=== PATIENT | female | born 1950 | race African-American/Black ===

== ENCOUNTER 2016-09-29 21:28 | Emergency (ER) | payer MEDICARE ==
[2016-09-29] MEDS ORDERED: Acetaminophen 325 MG TAB ONE (22:03)
--- NOTE | 2016-09-29 23:16 | ERRECORD ---
[facility] EMERGENCY RECORD HPI FEVER (22:06 LHOD) CHIEF COMPLAINT: Patient presents for evaluation of fever, Measured maximum temperature 101 to 101.9 degrees. HISTORIAN: History provided by patient. TIME COURSE: PT REPORTS TUESDAY SHE HAD ONSET OF LEFT LOWER TOOTHACHE. SHE WAS SEEN BY DENTIST TUESDAY, AND STARTED ON CLEOCIN ON TUESDAY. YESTERDAY SHE ONSET OF FEVER / CHILLS. REPORTS HAS HAD 3 DOSES OF CLEOCIN AND SWELLING AROUND LEFT LOWER TOOTH HAS DECREASED. ASSOCIATED WITH: No associated abdominal pain, Associated with chills, Associated with cough, intermittent, No associated diarrhea, No associated headache, Associated with myalgias, No associated rash, No associated sore throat, No associated inability to tolerate oral intake, No associated vomiting, NASAL CONGESTION. ROS (22:10 LHOD) CONSTITUTIONAL: Historian reports chills, reports fever. ENT: Historian reports rhinorrhea, denies sore throat. CARDIOVASCULAR: Historian denies chest pain, denies edema. RESPIRATORY: Historian denies cough, denies shortness of breath. GI: Historian denies abdominal pain, denies diarrhea, denies nausea, denies vomiting. GENITOURINARY FEMALE: Historian denies dysuria. MUSCULOSKELETAL: Historian reports myalgias. SKIN: Historian denies rash. NEUROLOGIC: Historian denies headache. HEMO/LYMPHATIC: Historian denies easy bruising. NOTES: All systems reviewed, negative except as described above. PAST MEDICAL HISTORY MEDICAL HISTORY: Flu vaccine up to date, Date of immunization: 06/05/16, Tetanus not up to date, Pneumococcal vaccine up to date, Date of immunization: 2013, Past medical history includes history of hyperlipidemia, high cholesterol, Past medical history includes history of hypertension, which has been treated, Patient is compliant, Flu vaccine not up to date, Tetanus immunization up to date, Pneumococcal vaccine not up to date, Past medical history includes history of hyperlipidemia, high cholesterol, Past medical history includes history of hypertension, which has been treated, Past medical history includes history of hyperlipidemia, high cholesterol, Past medical history includes history of hypertension, which has been treated, Patient is compliant.09-23-15. (22:39 MCRS) FEMALE SURGICAL HISTORY: Patient's surgical history is not relevant to the management of the case, Surgical history of appendectomy, Surgical history of section, Surgical history of hysterectomy, Surgical history of tonsillectomy, BACK,, Surgical history of appendectomy, Surgical history of section, Notes: &a-1R&a+25V*p+0X*f3361E*c202B*c15G*c2P*p-0X&a-25V&a+1R Name: Lexie Dutton : 1950 F65 MedRec: [id number] AcctNum: [id number] Prepared: TueSep 29, 2016 23:22 by Interface Page 1 of 4 pMD [facility] EMERGENCY RECORD X 1, Surgical history of hysterectomy, Surgical history of tonsillectomy.09-23-15.verified 09-29-16. (22:39 MCRS) PSYCHIATRIC HISTORY: Notes: NONE, Notes: DENIES. verified 09-29-16. (22:39 MCRS) SOCIAL HISTORY: Patient denies alcohol use, Patient denies drug use, Patient currently uses tobacco, smokes cigarettes, daily, Patient has smoked for 30 years, Patient smokes 1/2 packs per day, Patient denies alcohol use, Patient denies drug use, Patient currently uses tobacco, smokes cigarettes, daily, Patient has smoked for 30 years, Patient smokes 1 pack per day, Lives at home, with family, Patient denies alcohol use, Patient denies drug use, Patient currently uses tobacco, smokes cigarettes, daily, Patient smokes 1 pack per day. (22:39 MCRS) NOTES: Nursing records reviewed, HTN, RECENT DENTAL INFECTION FOR WHICH SHE IS TAKING CLEOCIN. (22:14 LHOD) KNOWN ALLERGIES ALLERGIES: (Unconfirmed) FOOD ALLERGIES: (Unconfirmed) LATEX ALLERGY? (Unconfirmed) morphine: Reaction: Hives, Severity: Mild, Source: Patient NKDA (Unconfirmed) Stadol CURRENT MEDICATIONS Bystolic: TABLET : Strength - 5 mg : ORAL Patient Dose: 1 tab(s) Oral once a day. (21:43 MCRS) Norvasc: TABLET : Strength - 5 mg : ORAL Patient Dose: 5 mg Oral once a day. (21:44 MCRS) [place]: TABLET : Strength - 5 mg-325 mg : ORAL Patient Dose: 1 tab(s) Oral every 6 hours PRN. (21:45 MCRS) clindamycin HCl: CAPSULE : Strength - 300 mg : ORAL Patient Dose: 300 mg Oral every 8 hours. (21:48 MCRS) VITAL SIGNS VITAL SIGNS: BP: 155/80 (Sitting), Pulse: 87, Resp: 18, Temp: 101.3 (Tympanic), Pain: 3 (Dull), O2 sat: 97 on Room Air, Time: 09/29/2016 21:35. (21:35 MCRS) Temp: 101.0, Time: 09/29/2016 22:50. (22:50 MCRS) PHYSICAL EXAM (22:11 LHOD) CONSTITUTIONAL: Vital Signs Reviewed, Patient febrile, temperature of 101.3, Pulse normal, Blood pressure, hypertensive, Respiratory rate normal, Normal pulse oximetry, Patient alert and oriented to person, place and time, BUNDLED IN CLOTHES, C/O CHILLS. &a-1R&a+25V*p+0X*m5894B*c202B*c15G*c2P*p-0X&a-25V&a+1R Name: Lexie Dutton Shan : 1950 F65 MedRec: [id number] AcctNum: [id number] Prepared: TueSep 29, 2016 23:22 by Interface Page 2 of 4 pMD [facility] EMERGENCY RECORD EYES: Pupils equally round and reactive to light, Extraocular muscles intact, Conjunctiva normal. ENT: Ear exam normal, Nose exam included findings of, SMALL AMOUNT CLEAR NASAL D/C, Pharynx exam normal, Teeth with, MANY ABSENT TEETH. 1 TOOTH LEFT LOWER WITHOUT TENDERNESS OR OBVIOUS ABSCESS. NECK: Neck exam included findings of normal range of motion, Trachea midline, Cervical adenopathy, isolated, 0-1.5 cm in size, LEFT SUBMANDIBULAR NODE. RESPIRATORY CHEST: Respiratory exam included findings of no respiratory distress, Breath sounds clear. CARDIOVASCULAR: Cardiovascular exam included findings of heart rate regular rate and rhythm, Heart sounds normal. ABDOMEN FEMALE: Abdominal exam included findings of abdomen nontender. BACK: Back exam normal. UPPER EXTREMITY: Joint exam normal. LOWER EXTREMITY: Joint exam normal. NEURO: Neuro exam findings include patient oriented to person, place and time, Speech normal. SKIN: no rash. MEDICATION ADMINISTRATION SUMMARY Drug Name: Levaquin oral, Dose Ordered: 750 mg, Route: Oral, Status: Given, Time: 22:41 09/29/2016, Drug Name: Tylenol, Dose Ordered: 650 mg, Route: Oral, Status: Given, Time: 22:05 09/29/2016, Detailed record available in Medication Service section. DOCTOR NOTES (22:39 LHOD) TEXT: PT'S SYMPTOMS COULD STILL BE VIRAL. SHE DENIES WHEN SHE SAW DENTIST THAT SHE HAD ANY DENTAL MANIPULATION TO CAUSE BACTEREMIA. I AM HOWEVER CONCERNED ABOUT HER CHILLS, SO I ADVISED ADDING LEVAQUIN, BUT PT SHOULD RETURN IF INCREASING SHORTNESS OF BREATH OR FEELING WORSE. SHE DENIES ANY URINARY SYMPTOMS. NO EVIDENCE OF MENINGITIS OR SEPSIS. PROBLEM LIST No recorded problems DIAGNOSIS (22:32 LHOD) FINAL: PRIMARY: FEBRILE URI, ADDITIONAL: LEFT LOWER INCISOR DENTAL INFECTION. PRESCRIPTION (22:33 LHOD) Levaquin oral: TABLET : 750 mg : ORAL : Quantity: 750 Unit: mg Route: ORAL Schedule: once a day Dispense: 5 May substitute. Refills: No Refills . NOTES: No Refills. &a-1R&a+25V*p+0X*s9973W*c202B*c15G*c2P*p-0X&a-25V&a+1R Name: Lexie Dutton : 1950 65 MedRec: [id number] AcctNum: [id number] Prepared: TueSep 29, 2016 23:22 by Interface Page 3 of 4 pMD [facility] EMERGENCY RECORD DISPOSITION PATIENT: Disposition Type: Discharge, Disposition: *Discharge Home, Condition: Good. (22:32 LHOD) Disposition Transport: Car. (23:16 MCRS) Patient left the department. (23:17 MCRS) Santos: LHOD=MD Martha, Kassidy MCRS=AMARIS Borjas, Mitchell &a-1R&a+25V*p+0X*v2973I*c202B*c15G*c2P*p-0X&a-25V&a+1R Name: Lexie Dutton : 1950 F65 MedRec: [id number] AcctNum: [id number] Prepared: TueSep 29, 2016 23:22 by Interface Page 4 of 4 pMD IN[facility]AD
--- NOTE | 2016-09-29 23:23 | PICIS ---
[facility] EMERGENCY RECORD TRIAGE (21:41 MCRS) TRIAGE NOTES: ABCESSED TOOTH WITH TREATED WITH ANTIBIOTICS - CHILLS FEVER - RUNNY NOSE AND SNEEZING STARTED YESTERDAY. (21:41 MCRS) PATIENT: NAME: Lexie Dutton, AGE: 65, GENDER: female, : Sat 1950, TIME OF GREET: TueSep 29, 2016 21:28, PREFERRED LANGUAGE: Maltese, ETHNICITY: Not or , FALL RISK: NO, ECODE BILLING MAP: [facility], SSN: [id number], Zip Code: [address], KG WEIGHT: 83.91, PHONE: , , , PERSON ID: [id number], PCP: MARTIN SOTO. (21:41 MCRS) COMPLAINT: FEVER, SINUS INFECTION. (21:41 MCRS) ADMISSION: URGENCY: 4 Non Urgent, ADMISSION SOURCE: Home, TRANSPORT: CAR, BED: ED -04. (21:41 MCRS) ASSESSMENT: Assessment: abscess tooth treated with antibiotics- sneezing and fever started yesterday. (22:39 MCRS) PAIN: Patient complains of pain described as, aching, Location abscessed tooth, Pain is intermittent, No efforts tried to relieve symptoms. (22:39 MCRS) IMMUNIZATIONS: Flu vaccine up to date, Date of immunization: 06/05/2016, Tetanus not up to date, Pneumococcal vaccine up to date, Date of immunization: 2012. (22:39 MCRS) SIRS SCORING: Heart Rate 55-109 (0), Temp range 101.2-102.0 (1), respiratory rate 12-24 (0), Mental Status altered: no (0), Yes, Infection or Suspected Infection. (22:39 MCRS) PROVIDERS: TRIAGE NURSE: Mitchell Borjas RN. (21:41 MCRS) VITAL SIGNS: BP 155/80, (Sitting), Pulse 87, Resp 18, Temp 101.3, (Tympanic), Pain 3, (Dull), O2 Sat 97, on Room Air, Time 09/29/2016 21:35. (21:35 MCRS) KNOWN ALLERGIES ALLERGIES: (Unconfirmed) FOOD ALLERGIES: (Unconfirmed) LATEX ALLERGY? (Unconfirmed) morphine: Reaction: Hives, Severity: Mild, Source: Patient NKDA (Unconfirmed) Stadol CURRENT MEDICATIONS Bystolic: TABLET : Strength - 5 mg : ORAL Patient Dose: 1 tab(s) Oral once a day. (21:43 MCRS) Norvasc: TABLET : Strength - 5 mg : ORAL Patient Dose: 5 mg Oral once a day. (21:44 MCRS) [place]: TABLET : Strength - 5 mg-325 mg : ORAL Patient Dose: 1 tab(s) Oral every 6 hours PRN. (21:45 MCRS) clindamycin HCl: CAPSULE : Strength - 300 mg : ORAL &a-1R&a+25V*p+0X*h6252E*c202B*c15G*c2P*p-0X&a-25V&a+1R Name: Lexie Dutton : 1950 F65 MedRec: [id number] AcctNum: [id number] Prepared: TueSep 29, 2016 23:28 by Interface Page 1 of 7 pMD [facility] EMERGENCY RECORD Patient Dose: 300 mg Oral every 8 hours. (21:48 MCRS) VITAL SIGNS VITAL SIGNS: BP: 155/80 (Sitting), Pulse: 87, Resp: 18, Temp: 101.3 (Tympanic), Pain: 3 (Dull), O2 sat: 97 on Room Air, Time: 09/29/2016 21:35. (21:35 MCRS) Temp: 101.0, Time: 09/29/2016 22:50. (22:50 MCRS) NURSING ASSESSMENT: HEAD-TO-TOE (22:40 MCRS) CONSTITUTIONAL: Patient arrives ambulatory, Gait steady, History obtained from patient, Patient appears comfortable, Patient cooperative, Patient alert, Oriented to person, place and time, Skin abnormal, Skin temperature is hot, Skin dry, Skin normal in color, Mucous membranes pink, Mucous membranes moist, Patient is well-groomed, Patient complains of abscessed tooth treated - fever sneezing. PAIN: aching pain, abscessed tooth, Onset of pain 2 days, on a scale 0-10 patient rates pain as 3, Nothing has been tried to alleviate the pain. NONVERBAL PAIN: Notes: no outward signs of pain. ENT: Ear assessment findings include ear normal to inspection, Nasal assessment findings include nose normal to inspection, Sinuses normal, Nasal mucosa, swollen, Mouth and throat assessment findings include mouth inspection normal. SAFETY: Side rails up, Cart/Stretcher in lowest position, Family at bedside, Call light within reach, Hospital ID band on. NURSING PROCEDURE: BEDSIDE TESTING (22:00 MCRS) PATIENT IDENTIFIER: Patient actively involved in identification process, Patient's identity verified by hospital ID brashyla. FOLLOW-UP: Notes: nasal swab for flu performed by md. SAFETY: Side rails up, Cart/Stretcher in lowest position, Family at bedside, Call light within reach, Hospital ID band on. NURSING PROCEDURE: DISCHARGE NOTE (22:50 MCRS) DISCHARGE: Patient discharged to home, ambulating without assistance, driving self, accompanied by other family member, Summary of Care printed/ provided, Patient requested and was provided an electronic copy of Discharge Instructions, Transition record given to patient, Discharge instructions given to patient, Simple or moderate discharge teaching performed, discharge instructions, Prescriptions given and instructions on side effects given, Medication reconciliation form given, and reviewed with see list, Above person(s) verbalized understanding of discharge instructions and follow-up care, Patient treated and evaluated by physician, Notes: see list. BELONGINGS: Valuables remain with patient. VITAL SIGNS: Temp: 101.0. ORDER DETAILS &a-1R&a+25V*p+0X*j7167J*c202B*c15G*c2P*p-0X&a-25V&a+1R Name: Lexie Dutton : 1950 F65 MedRec: [id number] AcctNum: [id number] Prepared: TueSep 29, 2016 23:28 by Interface Page 2 of 7 pMD [facility] EMERGENCY RECORD Order Name: Accucheck, Status: Done, Time: 22:29 09/29/2016, User: [facility], - Ordered for: MD Thomas Lefayne, - Entered by: MD Thomas Lefayne - TueSep 29, 2016 22:23, - Quantity: 1, Order Name: Influenza A&B Ag Screen, Status: Active, Time: 21:55 09/29/2016, User: [facility], - Ordered for: MD Thomas Lefayne - Entered by: MD Thomas Lefayne - TueSep 29, 2016 21:55, - Quantity: 1. MEDICATION ADMINISTRATION SUMMARY Drug Name: Levaquin oral, Dose Ordered: 750 mg, Route: Oral, Status: Given, Time: 22:41 09/29/2016, Drug Name: Tylenol, Dose Ordered: 650 mg, Route: Oral, Status: Given, Time: 22:05 09/29/2016, Detailed record available in Medication Service section. MEDICATION SERVICE Levaquin oral: Order: Levaquin oral (levofloxacin) - Dose: 750 mg : Oral Ordered by: Kassidy Thomas MD Entered by: Kassidy Thomas MD TueSep 29, 2016 22:23 Documented as given by: Brooke Sung RN TueSep 29, 2016 22:41 Patient, Medication, Dose, Route and Time verified prior to administration. Amount given: 750MG, Site: Medication administered P.O., Mouth check performed after administration of medication, Patient appears Awake and alert- acceptable, Correct patient, time, route, dose and medication confirmed prior to administration, Patient advised of actions and side-effects prior to administration, Allergies confirmed and medications reviewed prior to administration, Patient tolerated procedure well, Patient in position of comfort, Side rails up, Cart in lowest position, Family at bedside. Tylenol: Order: Tylenol (acetaminophen) - Dose: 650 mg : Oral Ordered by: Kassidy Thomas MD Entered by: Kassidy Thomas MD TueSep 29, 2016 21:56 , Acknowledged by: Mitchell Borjas RN TueSep 29, 2016 22:01 Documented as given by: Mitchell Borjas RN TueSep 29, 2016 22:05 Patient, Medication, Dose, Route and Time verified prior to administration. Amount given: 650mg, Site: Medication administered P.O., Patient appears Awake and alert- acceptable, Correct patient, time, route, dose and medication confirmed prior to administration, Patient advised of actions and side-effects prior to administration, Allergies confirmed and medications reviewed prior to administration, Patient in position of comfort, Side rails up, Cart in lowest &a-1R&a+25V*p+0X*o8405F*c202B*c15G*c2P*p-0X&a-25V&a+1R Name: Lexie Dutton: 1950 F65 MedRec: [id number] [facility] [id number] Prepared: TueSep 29, 2016 23:28 by Interface Page 3 of 7 pMD [facility] EMERGENCY RECORD position. HPI FEVER (22:06 LHOD) CHIEF COMPLAINT: Patient presents for evaluation of fever, Measured maximum temperature 101 to 101.9 degrees. HISTORIAN: History provided by patient. TIME COURSE: PT REPORTS TUESDAY SHE HAD ONSET OF LEFT LOWER TOOTHACHE. SHE WAS SEEN BY DENTIST TUESDAY, AND STARTED ON CLEOCIN ON TUESDAY. YESTERDAY SHE ONSET OF FEVER / CHILLS. REPORTS HAS HAD 3 DOSES OF CLEOCIN AND SWELLING AROUND LEFT LOWER TOOTH HAS DECREASED. ASSOCIATED WITH: No associated abdominal pain, Associated with chills, Associated with cough, intermittent, No associated diarrhea, No associated headache, Associated with myalgias, No associated rash, No associated sore throat, No associated inability to tolerate oral intake, No associated vomiting, NASAL CONGESTION. ROS (22:10 LHOD) CONSTITUTIONAL: Historian reports chills, reports fever. ENT: Historian reports rhinorrhea, denies sore throat. CARDIOVASCULAR: Historian denies chest pain, denies edema. RESPIRATORY: Historian denies cough, denies shortness of breath. GI: Historian denies abdominal pain, denies diarrhea, denies nausea, denies vomiting. GENITOURINARY FEMALE: Historian denies dysuria. MUSCULOSKELETAL: Historian reports myalgias. SKIN: Historian denies rash. NEUROLOGIC: Historian denies headache. HEMO/LYMPHATIC: Historian denies easy bruising. NOTES: All systems reviewed, negative except as described above. PAST MEDICAL HISTORY MEDICAL HISTORY: Flu vaccine up to date, Date of immunization: 06/05/16, Tetanus not up to date, Pneumococcal vaccine up to date, Date of immunization: 2013, Past medical history includes history of hyperlipidemia, high cholesterol, Past medical history includes history of hypertension, which has been treated, Patient is compliant, Flu vaccine not up to date, Tetanus immunization up to date, Pneumococcal vaccine not up to date, Past medical history includes history of hyperlipidemia, high cholesterol, Past medical history includes history of hypertension, which has been treated, Past medical history includes history of hyperlipidemia, high cholesterol, Past medical history includes history of hypertension, which has been treated, Patient is compliant.09-23-15. (22:39 MCRS) FEMALE SURGICAL HISTORY: Patient's surgical history is not relevant to the management of the case, Surgical history of appendectomy, Surgical history of section, Surgical history &a-1R&a+25V*p+0X*t2854Y*c202B*c15G*c2P*p-0X&a-25V&a+1R Name: Lexie Dutton : 1950 F65 MedRec: [id number] AcctNum: [id number] Prepared: TueSep 29, 2016 23:28 by Interface Page 4 of 7 pMD [facility] EMERGENCY RECORD of hysterectomy, Surgical history of tonsillectomy, BACK,, Surgical history of appendectomy, Surgical history of section, Notes: X 1, Surgical history of hysterectomy, Surgical history of tonsillectomy.09-23-15.verified 09-29-16. (22:39 MCRS) PSYCHIATRIC HISTORY: Notes: NONE, Notes: DENIES. verified 09-29-16. (22:39 MCRS) SOCIAL HISTORY: Patient denies alcohol use, Patient denies drug use, Patient currently uses tobacco, smokes cigarettes, daily, Patient has smoked for 30 years, Patient smokes 1/2 packs per day, Patient denies alcohol use, Patient denies drug use, Patient currently uses tobacco, smokes cigarettes, daily, Patient has smoked for 30 years, Patient smokes 1 pack per day, Lives at home, with family, Patient denies alcohol use, Patient denies drug use, Patient currently uses tobacco, smokes cigarettes, daily, Patient smokes 1 pack per day. (22:39 MCRS) NOTES: Nursing records reviewed, HTN, RECENT DENTAL INFECTION FOR WHICH SHE IS TAKING CLEOCIN. (22:14 LHOD) PHYSICAL EXAM (22:11 LHOD) CONSTITUTIONAL: Vital Signs Reviewed, Patient febrile, temperature of 101.3, Pulse normal, Blood pressure, hypertensive, Respiratory rate normal, Normal pulse oximetry, Patient alert and oriented to person, place and time, BUNDLED IN CLOTHES, C/O CHILLS. EYES: Pupils equally round and reactive to light, Extraocular muscles intact, Conjunctiva normal. ENT: Ear exam normal, Nose exam included findings of, SMALL AMOUNT CLEAR NASAL D/C, Pharynx exam normal, Teeth with, MANY ABSENT TEETH. 1 TOOTH LEFT LOWER WITHOUT TENDERNESS OR OBVIOUS ABSCESS. NECK: Neck exam included findings of normal range of motion, Trachea midline, Cervical adenopathy, isolated, 0-1.5 cm in size, LEFT SUBMANDIBULAR NODE. RESPIRATORY CHEST: Respiratory exam included findings of no respiratory distress, Breath sounds clear. CARDIOVASCULAR: Cardiovascular exam included findings of heart rate regular rate and rhythm, Heart sounds normal. ABDOMEN FEMALE: Abdominal exam included findings of abdomen nontender. BACK: Back exam normal. UPPER EXTREMITY: Joint exam normal. LOWER EXTREMITY: Joint exam normal. NEURO: Neuro exam findings include patient oriented to person, place and time, Speech normal. SKIN: no rash. LAB INTERPRETATION (22:24 LHOD) INTERPRETATION: I reviewed the lab results, Influenza negative. EVENTS &a-1R&a+25V*p+0X*t5326C*c202B*c15G*c2P*p-0X&a-25V&a+1R Name: Lexie Dutton : 1950 F65 MedRec: [id number] AcctNum: [id number] Prepared: TueSep 29, 2016 23:28 by Interface Page 5 of 7 pMD [facility] EMERGENCY RECORD TRANSFER: Triage to Emergency Main ED -04. (TueSep 29, 2016 21:41 MCRS) Removed from Emergency Main ED -04. (23:17 MCRS) DOCTOR NOTES (22:39 LHOD) TEXT: PT'S SYMPTOMS COULD STILL BE VIRAL. SHE DENIES WHEN SHE SAW DENTIST THAT SHE HAD ANY DENTAL MANIPULATION TO CAUSE BACTEREMIA. I AM HOWEVER CONCERNED ABOUT HER CHILLS, SO I ADVISED ADDING LEVAQUIN, BUT PT SHOULD RETURN IF INCREASING SHORTNESS OF BREATH OR FEELING WORSE. SHE DENIES ANY URINARY SYMPTOMS. NO EVIDENCE OF MENINGITIS OR SEPSIS. PROBLEM LIST No recorded problems DIAGNOSIS (22:32 LHOD) FINAL: PRIMARY: FEBRILE URI, ADDITIONAL: LEFT LOWER INCISOR DENTAL INFECTION. DISPOSITION PATIENT: Disposition Type: Discharge, Disposition: *Discharge Home, Condition: Good. (22:32 LHOD) Disposition Transport: Car. (23:16 MCRS) Patient left the department. (23:17 MCRS) INSTRUCTION (22:35 LHOD) DISCHARGE: FEVER CONTROL (ADULT), VIRAL URI ADULT, ABSCESS DENTAL. FOLLOWUP: Follow up with Primary Care Physician in 2-3 days. SPECIAL: TAKE YOUR CLINDAMYCIN EVERY 6 HOURS. START LEVAQUIN TOMORROW. RETURN IF WORSE. Tylenol or Advil for Pain /FEVER. PRESCRIPTION (22:33 LHOD) Levaquin oral: TABLET : 750 mg : ORAL : Quantity: 750 Unit: mg Route: ORAL Schedule: once a day Dispense: 5 May substitute. Refills: No Refills . NOTES: No Refills. IMAGING *SUPPLY CHARGE SHEET: Image captured from scanner. (23:15 MCRS) *DISCHARGE INSTRUCTIONS RECEIPT: Image captured from scanner. (23:16 MCRS) ADMIN DIGITAL SIGNATURE: MD Martha, Kassidy. (23:04 LHOD) AMARIS Borjas, Mitchell. (23:17 MCRS) RESULTS &a-1R&a+25V*p+0X*o5168N*c202B*c15G*c2P*p-0X&a-25V&a+1R Name: Lexie Dutton : 1950 F65 MedRec: [id number] AcctNum: [id number] Prepared: TueSep 29, 2016 23:28 by Interface Page 6 of 7 pMD [facility] EMERGENCY RECORD MICROBIOLOGY: Influenza A&B Ag Screen: [id number] Collection DT: TueSep 29, 2016 22:03, See comment below , @ ER ROOM#: ED-04 Comment NASAL Source: Nasal swab Spec Desc: , Influenza A Antigen: NEGATIVE for the , presence of , INFLUENZA A Antigen , Influenza B Antigen: NEGATIVE for the , presence of , INFLUENZA B Antigen , The rapid Flu A&B test can distinguish between influenza A , Influenza A&B Ag Screen See comment below , and B viruses, but it does not differentiate influenza , Influenza A&B Ag Screen See comment below , subtypes. , Influenza A&B Ag Screen See comment below , Influenza A&B Ag Screen See comment below , Influenza A&B Ag Screen See comment below , Influenza A&B Ag Screen See comment below , Influenza A&B Ag Screen See comment below , with the 2008 H1N1 influenza virus have not been , Influenza A&B Ag Screen See comment below , established. For example: this test cannot distinguish , Influenza A&B Ag Screen See comment below , influenza infections caused by novel H1N1 influenza A , Influenza A&B Ag Screen See comment below , viruses versus seasonal influenza A viruses. , Influenza A&B Ag Screen See comment below , , Influenza A&B Ag Screen See comment below , A negative result does not exclude influenza virus , Influenza A&B Ag Screen See comment below , infection; therefore, if more conclusive testing is desired, , Influenza A&B Ag Screen See comment below , follow up confirmatory testing is warranted., Influenza A&B Ag Screen See comment below . (22:19 LHOD) LABORATORY: [facility] Collection DT: TueSep 29, 2016 22:37, [facility] 107 mg/dL, Range (70-110). (22:42 LHOD) Santos: LHOD=MD Martha, Kassidy MCRS=AMARIS Borjas, Mitchell &a-1R&a+25V*p+0X*f4225V*c202B*c15G*c2P*p-0X&a-25V&a+1R Name: Maurafarideh BlackmanLexie : 1950 F65 MedRec: [id number] AcctNum: [id number] Prepared: TueSep 29, 2016 23:28 by Interface Page 7 of 7 pMD MTDD
== END 2016-09-29 22:50 | disposition home or self-care (01) ==
LOC: MADERS 21:28
DX: J06.9 Acute upper respiratory infection, unspecified (principal); K04.7 Periapical abscess without sinus; I10 Essential (primary) hypertension; E78.5 Hyperlipidemia, unspecified; F17.210 Nicotine dependence, cigarettes, uncomplicated; Z79.899 Other long term (current) drug therapy
CPT/HCPCS: 36416; 99283

== ENCOUNTER 2016-12-30 20:14 | Emergency (ER) | payer MEDICARE ==
[2016-12-30] MEDS ORDERED: diphenhydrAMINE HCl 25 MG CAP ONE ×2 (21:27→21:28)
[2016-12-30] MEDS ORDERED: Naproxen 500 MG TAB ONE (21:32)
[2016-12-30] MEDS ORDERED: predniSONE 20 MG TAB ONE (21:33)
[2016-12-30] MEDS ORDERED: HYDROcodone/Acetaminophen 10/325 mg Tablet ONE (21:34)
== END 2016-12-30 21:41 | disposition home or self-care (01) ==
LOC: MADERS 20:14
DX: T63.301A Toxic effect of unspecified spider venom, accidental (unintentional), initial encounter (principal); M79.89 Other specified soft tissue disorders; I10 Essential (primary) hypertension; E78.5 Hyperlipidemia, unspecified; E78.00 Pure hypercholesterolemia, unspecified; F17.210 Nicotine dependence, cigarettes, uncomplicated; Z79.82 Long term (current) use of aspirin; Z79.899 Other long term (current) drug therapy
CPT/HCPCS: 99282; J7506

== ENCOUNTER 2021-06-02 20:40 | Emergency (ER) | payer MEDICARE ==
[2021-06-02] MEDS ORDERED: Ketorolac Tromethamine 30 MG/ML VIAL ONE (21:26)
[2021-06-02] MEDS ORDERED: predniSONE 20 MG TAB ONE (21:26)
[2021-06-02] MEDS ORDERED: Cyclobenzaprine 10 MG TAB ONE (21:26)
== END 2021-06-02 21:44 | disposition home or self-care (01) ==
LOC: MADERS 20:40
DX: G89.29 Other chronic pain (principal); M54.5 Low back pain; E78.5 Hyperlipidemia, unspecified; E78.00 Pure hypercholesterolemia, unspecified; I10 Essential (primary) hypertension; F17.210 Nicotine dependence, cigarettes, uncomplicated; Z79.899 Other long term (current) drug therapy
CPT/HCPCS: 96372; 99282; J1885; J7512

== ENCOUNTER 2021-08-30 10:37 | Emergency (ER) | payer MEDICARE ==
[2021-08-31 17:28] LABS: SARS-CoV-2 PCR by NAA DETECTED (NotDetected)
== END 2021-08-30 12:32 | disposition home or self-care (01) ==
LOC: MADERS 10:37
DX: U07.1 COVID-19 (principal); I10 Essential (primary) hypertension; E78.00 Pure hypercholesterolemia, unspecified; E78.5 Hyperlipidemia, unspecified; F17.210 Nicotine dependence, cigarettes, uncomplicated
CPT/HCPCS: 71045; 87804 ×2; U0003; U0005